=== PATIENT | female | born 1945 | race Caucasian/White ===

== ENCOUNTER 2020-02-16 16:30 | Inpatient (IN) | payer OTHER ==
[~2020-02-16] VITALS: Ht 162.6 cm; Wt 90.7 kg
[2020-02-16 20:17] VITALS: BP 110/77
[2020-02-16] MEDS ORDERED: AMLODIPINE-BEN1 EAC5 PO (21:01)
[2020-02-16] MEDS ORDERED: DURLAZA162.5 MG PO (21:02)
[2020-02-16] MEDS ORDERED: FAMOTIDINE 20 M20 MG PO (21:03)
[2020-02-16] MEDS ORDERED: CLARITIN10 M3 PO (21:05)
[2020-02-16] MEDS ORDERED: NASONEX17 GM NASAL (21:06)
--- NOTE | 2020-02-16 22:23 | NUR ---
admission note: patients dtr made it very clear that all requests for any procedures will need to be spoken to shaquille urias first. patients abbie refuses to have any surgery. she understands that procedures are different than surgery and would like her dtr notified if anything needed. she has had a sandwivh tray and is feeling much better now. she is from home and she has mostly been isolated per her report. she stated that she has been coughing for at least a month. and that she has increased her smoking since she could not get of the house during covid isolation. all medication history taken from patient. she has no allergies to food and medications.
[2020-02-17] VITALS (7 sets, daily range): BP systolic 92–120; BP diastolic 54–71
--- NOTE | 2020-02-17 01:33 | NUR ---
AFTER HER BREATHING TREATMENT, SHE HAD A FORCEFUL COUGHING FIT AND BECAME A BIT SWEATY. SHE HAD TO SIT UP AND RELAX HER BREATHING. BLOOD PRESSURE 105/59. HEART RATE 95. SHE HAS A NON PRODUCTIVE COUGH THAT IS VERY FORCEFUL.
--- NOTE | 2020-02-17 03:39 | NUR ---
0245 patient transferred to [facility] per [facility], and orders from provider.
--- NOTE | 2020-02-17 05:57 | NUR ---
PT ARRIVED TO UNIT FROM PT HAD NOT BEEN SWABBED FOR COVID. ACQUIRED COVID SWAB AND SENT TO LAB. FOLLOWING POC WITH DILTIAZEM GTT AT 10MG/HR WITH HR IN 80'S. SPENT AN HOUR ON THE PHONE WITH DAUGHTER ABOUT WHY WE SWABBED HER MOTHER, THE DAUGHTER IS THE DPOA AND (THE DAUGHTER) DID NOT AGREE TO THIS. PT RESTING COMFORTABLY NOW. ISOLATION PRECAUTIONS IN PLACE.
[2020-02-17 05:59] LABS: HEMATOCRIT 30.1 % (37.0-47.0); HEMOGLOBIN 9.3 gm/dL (12.0-15.0); MCV 80.7 fL (80.0-100.0); RBC 3.73 mil/uL (4.20-5.00); RDW 19.1 % (10.5-14.5); WBC 9.7 thou/uL (4.0-11.0)
[2020-02-17 06:19] LABS: CALCIUM 8.4 mg/dL (8.5-10.1); CREATININE 1.4 mg/dL (0.6-1.0); POTASSIUM 5.4 mmol/L (3.5-5.1)
--- NOTE | 2020-02-17 14:31 | EKG ---
[facility] [place] [address] ELECTROCARDIOGRAM REPORT Name: MARISOL SMITH Room #: 363-P ADM IN M.R.#: [id number] Admission: 02/16/20 Attend Phys: Rhys Grider MD Discharge: Date of : 47 Report #: [id number] THIS REPORT FOR: cc: Sid Nagel Richard R. DO Park,Elliot Brenner MD ~ THIS REPORT FOR: //name// [facility] Test Date: 2020-02-17 Test Time: 09:21:17 Pat Name: MARISOL SMITH Department: Room: [facility] Gender: F Business Intelligence Analyst: PAVAN : 1945 Requested By: Earnestine Gibson Order Number: [id number] MD: Elliot Meadows Measurements Intervals [place] Rate: 88 P: [place]: QRS: 51 QRSD: 93 T: 67 QT: 374 QTc: 453 Interpretive Statements Atrial fibrillation No previous ECG available for comparison Electronically Signed On 02-17-2020 14:29:27 CDT by Elliot Meadows [email or web address] <ELECTRONICALLY SIGNED> By: Elliot Meadows MD 02/17/20 1429 0921 09 Elliot Meadows MD /FRANK
--- NOTE | 2020-02-17 15:41 | NUR ---
PATIENT REMAINS ON 2L NC. DEEP BREATHES AND COUGHS BY SELF. UP TO BEDSIDE COMMODE INDEPENDENTLY USING WALKER AND OXYGEN. PATIENT HAS STEADY GAIT AGREES TO CALL IF SHE FEELS LIGHT HEADED, DIZZY, OR WEAK. CHINO DOMINGUEZ DC'D THIS SHIFT, ORDERS PLACED BY CARDIO TO BEGIN PO MEDICATION. PATIENT DENIES PAIN THIS SHIFT. PATIENT HAS SPOKEN WITH HER DAUGHTER ON THE PHONE THIS SHIFT AND HAS ASKED US TO DIRECT HER DAUGHTER'S QUESTIONS TO THE PATIENT VIA HER CELL PHONE. COVID TEST RESULTED NEGATIVE THIS SHIFT. PATIENT PROGRESSING TOWARDS GOALS FOR DISCHARGE.
--- NOTE | 2020-02-17 23:07 | NUR ---
ASSUMED CARE AT 1900. PT DENIES PAIN OR NAUSEA. REPORTS SOB WITH ACTIVITY, WHEEZING LUNG SOUNDS. ORDERS PER DR. LIANG TO REMOVED FROM ENHANVED PRECAUTIONS. TRANSFERRED BY W/C TO [facility] AT 2145, PT IN STABLE CONDITION, REPORT GIVEN TO VIRGIE ESPINOZA.
[2020-02-18 04:01] VITALS: BP 113/69
--- NOTE | 2020-02-18 04:15 | NUR ---
ASSESSMENT DOCUMENTED.PT BEEN RESTING IN NO ACUTE DISTRESS.A/OX4.VSS.TRANSFERRED FROM [facility].ON MONITOR AFIB WITH CONTROLLED HR.ON O2 AT 2LITERS PNC,SATS ADEQUATE.NO RESP DISTRESS REPORTED.JONES NOTED WITH TOILETING.PT DENIES NEEDS AT THIS TIME.WILL CONT TO MONITOR PER POC.
[2020-02-18 07:26] VITALS: BP 103/58
--- NOTE | 2020-02-18 08:08 | HC ---
[facility] [place] [address] CONSULTATION Name: MARISOL SMITH Room #: 201-P ADM IN M.R.#: [id number] Admission: 02/16/20 Attend Phys: Rhys Grider MD Discharge: Date of : 47 Report #: [id number] THIS REPORT FOR: cc: Sid Nagel,Elliot Ornelas MD ~ CC: Rhys Nagel DATE OF SERVICE: 02/17/2020 INDICATION: Atrial fibrillation. HISTORY OF PRESENT ILLNESS: This is a 74-year-old female with a history of COPD, on home oxygen; hypertension; pneumonia; anemia; chronic tobacco use, presenting with dyspnea. She had presented to the hospital in [facility] with increasing in shortness of air. She was diagnosed with congestive heart failure and new-onset atrial fibrillation with a rapid ventricular rate. She was treated with IV Lasix and started on Cardizem. Her heart rate is under control and she symptomatically improved with diuresis. She is also on antibiotics and steroids for possible COPD exacerbation. She denies any episodes of atrial fibrillation, chest pain or orthopnea. PAST MEDICAL HISTORY: COPD, on home oxygen. Hypertension, pneumonia, anemia. ALLERGIES: None. MEDICATIONS: At home are amlodipine/benazepril, aspirin once a day. SOCIAL HISTORY: Positive tobacco use. FAMILY HISTORY: Negative for premature CAD. REVIEW OF SYSTEMS: A full 10-point review of systems performed. Only the pertinent positives and negatives are described in the HPI. PHYSICAL EXAMINATION: VITAL SIGNS: Blood pressure is 115/60, heart rate is 90 beats per minute. GENERAL APPEARANCE: This is an elderly appearing female in no acute distress. HEENT: Normocephalic, atraumatic. Oral mucosa moist. NECK: Supple. LUNGS: Few expiratory wheezes bilaterally. CARDIAC: Irregularly irregular, 2/6 systolic murmur. ABDOMEN: Protuberant, soft, nontender. EXTREMITIES: No cyanosis, trace to 1+ lower extremity edema. [facility] [address] [place] [address] CONSULTATION Name: MARISOL SMITH Room #: 201- ADM IN M.R.#: [id number] Admission: 02/16/20 Attend Phys: Rhys Grider MD Discharge: Date of : 47 Report #: [id number] ECG reveals atrial fibrillation with a heart rate of 88 beats per minute, nonspecific ST segment abnormalities. LABORATORY VALUES: White count is 9.7, hemoglobin is 9.3. Sodium is 140, BUN is 42, creatinine is 1.4. ASSESSMENT AND PLAN: 1. Atrial fibrillation with rapid rate, heart rate is under control. We will transition to oral beta sourav therapy. She is at increased risk, long-term anticoagulation therapy is recommended. Lovenox for now until no invasive procedure is ordered. 2. Congestive heart failure, rule out diastolic dysfunction. We will need an echo. Appears to be stable, decrease Lasix dose. 3. Chronic obstructive pulmonary disease/exacerbation, antibiotics and steroids as per Pulmonary. 4. Hypertension, stable blood pressure at this time. <ELECTRONICALLY SIGNED> By: Elliot Meadows MD 02/18/20 0808 1359 1801 Elliot Meadows MD /nt
[2020-02-18 08:19] LABS: CALCIUM 8.7 mg/dL (8.5-10.1); CREATININE 1.2 mg/dL (0.6-1.0); POTASSIUM 5.4 mmol/L (3.5-5.1)
[2020-02-18 11:17] VITALS: BP 104/70
--- NOTE | 2020-02-18 13:53 | 2DMMODE ---
[facility] [place] [address] 2 D/M-MODE ECHOCARDIOGRAM Name: MARISOL SMITH Room #: 201-P ADM IN M.R.#: [id number] Admission: 02/16/20 Attend Phys: Pedro Luis Aquino MD Discharge: Date of : 47 Report #: [id number] THIS REPORT FOR: cc: Sid Nagel Richard R. DO Lammoglia, Francisco J. MD ~ APPROVED REPORT Study performed: 02/18/2020 12:47:37 EXAM: Comprehensive 2D, Doppler, and color-flow Echocardiogram Patient Location: Bedside Room #: 201 Status: routine BSA: 1.96 HR: 72 bpm BP: 103/58 mmHg Rhythm: Atrial Fibrillation Other Information Study Quality: Good Indications Short of breath, CHF, Afib with RVR. Hx: HTN, COPD. 2D Dimensions RVDd: 38.63 mm IVSd: 12.25 (7-11mm) LVOT Diam: 20.36 (18-24mm) LVDd: 43.00 mm PWd: 11.00 (7-11mm) Ascending Ao: 35.79 (22-36mm) LVDs: 27.99 (25-40mm) Aortic Root: 31.72 mm Volumes Left Atrial Volume (Systole) Single Plane 4CH: 63.11 mL Aortic Valve AoV Peak Kenny.: 3.41 m/s AO Peak Gr.: 51.27 mmHg LVOT Max P.91 mmHg AO Mean Gr.: 31.67 mmHg AO V2 Mean: 2.56 m/s LVOT Max V: 0.69 m/s AO V2 VTI: 77.00 cm [facility] [address] [place] [address] 2 D/M-MODE ECHOCARDIOGRAM Name: MARISOL SMITH Room #: 201-P [facility] IN [facility].#: [id number] Admission: 02/16/20 Attend Phys: Pedro Luis Aquino MD Discharge: Date of : 47 Report #: [id number] MANUEL Vmax: 0.66 cm2 Mitral Valve MV Decel. Time: 183.18 ms MV E Max Kenny.: 1.43 m/s Pulmonary Valve PV Peak Kenny.: 0.86 m/s PV Peak Gr.: 2.99 mmHg Tricuspid Valve TR Peak Kenny.: 2.77 m/s TR Peak Gr.: 31.00 mmHg Left Ventricle The left ventricle is normal size. There is normal LV segmental wall motion. Mild concentric left ventricular hypertrophy. Left ventricular systolic function is normal. LVEF is 60-65%. This study is not technically sufficient to allow evaluation of the LV diastolic function due to atrial fibrillation. Right Ventricle The right ventricle is normal size. The right ventricular systolic function is normal. Atria Left atrium is dilated. The right atrium size is normal. Aortic Valve Aortic valve is heavily calcified. Trace to mild aortic regurgitation. There is severe valvular aortic stenosis. Calculated aortic valve area is 0.7 cm2 with maximum pressure gradient of 51 mmHg and mean pressure gradient of 32 mmHg. Mitral Valve The mitral valve is normal in structure. Mild to moderate mitral regurgitation; eccentric jet. No evidence of mitral valve stenosis. Tricuspid Valve The tricuspid valve is normal in structure. Mild tricuspid regurgitation. Estimated PAP is 31mmHg plus the right atrial pressure. Pulmonic Valve The pulmonary valve is normal in structure. Mild pulmonic regurgitation. [facility] [address] [place] [address] 2 D/M-MODE ECHOCARDIOGRAM Name: MARISOL SMITH Room #: 201-P [facility] IN M.R.#: [id number] Admission: 02/16/20 Attend Phys: Pedro Luis Aquino MD Discharge: Date of : 47 Report #: [id number] Great Vessels The aortic root is normal in size. The ascending aorta is normal in size. IVC is not well visualized. Pericardium There is no pericardial effusion. <Conclusion> The left ventricle is normal size. LVEF is 60-65%. Left atrium is dilated. Aortic valve is heavily calcified. Trace to mild aortic regurgitation. There is severe valvular aortic stenosis. Calculated aortic valve area is 0.7 cm2 with maximum pressure gradient of 51 mmHg and mean pressure gradient of 32 mmHg. The mitral valve is normal in structure. Mild to moderate mitral regurgitation; eccentric jet. The tricuspid valve is normal in structure. Mild tricuspid regurgitation. Estimated PAP is 31mmHg plus the right atrial pressure. The pulmonary valve is normal in structure. Mild pulmonic regurgitation. There is no pericardial effusion. <ELECTRONICALLY SIGNED> By: Trav Ashford MD 02/18/20 1351 1351 1351 Trav Ashford MD /INF
[2020-02-18] MEDS ORDERED: ATENOLOL 50MG T50 MG PO (14:04)
[2020-02-18] MEDS ORDERED: LASIX 20 MG TAB20 MG PO (14:06)
[2020-02-18] MEDS ORDERED: XARELTO20 MG PO (14:06)
[2020-02-18] MEDS ORDERED: LEVAQUIN 500 M500 M3 PO (15:37)
[2020-02-18] MEDS ORDERED: PROAIR HFA8.5 GM INH (15:38)
[2020-02-18] MEDS ORDERED: PREDNISONE 10 M10 M1 PO (15:38)
[2020-02-18 15:55] VITALS: BP 104/70
--- NOTE | 2020-02-18 16:40 | NUR ---
ASSUMED CARE AT SHIFT CHANGE, ALERT AND ORIENTED X4. AFIB ON THE MONITOR AND VSS. DISCHARGE AND MEDICATION GIVEN TO PATIENT. PRESCRIPTION CALLED IN TO PATIENT PHARMACY. AND PATIENT DISCHARGED HOME.
== END 2020-02-18 17:33 | disposition home or self-care (01) | DRG 291 ==
LOC: 2N 16:30 → 3W 20:14 → 2N 02-17 22:00
PROVIDERS: Nurse Practitioner; Nurse Practitioner Family; ADMIT Hospitalist
DX: I13.0 Hypertensive heart and chronic kidney disease with heart failure and stage 1 through stage 4 chronic kidney disease, or unspecified chronic kidney disease (principal); J18.9 Pneumonia, unspecified organism; J96.01 Acute respiratory failure with hypoxia; I50.23 Acute on chronic systolic (congestive) heart failure; J44.1 Chronic obstructive pulmonary disease with (acute) exacerbation; Z79.82 Long term (current) use of aspirin; I48.91 Unspecified atrial fibrillation; Z20.828 Contact with and (suspected) exposure to other viral communicable diseases; N18.3 Chronic kidney disease, stage 3 (moderate); D64.9 Anemia, unspecified; Z87.81 Personal history of (healed) traumatic fracture; Z71.6 Tobacco abuse counseling; Z60.2 Problems related to living alone; Z79.899 Other long term (current) drug therapy; Z99.81 Dependence on supplemental oxygen
CPT/HCPCS: 10081